=== PATIENT | female | born 1940 | race Caucasian/White ===

== ENCOUNTER → 2017-03-01 | Outpatient (CLI) | payer MEDICARE, OTHER ==
[~2017-03-01] MED LIST: ASPI-1005 PO; BETA1TAB18 PO; CLIN300C9 PO; EZET10 PO; FENO135C4 PO; LATA2.5D2 OU; LEVO150T11 PO; LOSA1TAB54 PO; REGADENOSON 0.4 MG/5 ML PF SYG IVP SCH
== END | disposition home or self-care (01) ==
LOC: SHCH 07:53
PROVIDERS: ATTEND Internal Medicine Cardiovascular Disease
DX: I25.10 Atherosclerotic heart disease of native coronary artery without angina pectoris (principal)
CPT/HCPCS: 78452; 93017; 96374; A9500 ×2; J2785

== ENCOUNTER → 2020-01-03 | Outpatient (CLI) | payer OTHER ==
[~2020-01-03] MED LIST changes: -EZET10 PO; +EZET10TA13 PO; +LATA2.5D14 OU; -LATA2.5D2 OU; -REGADENOSON 0.4 MG/5 ML PF SYG IVP SCH
== END | disposition home or self-care (01) ==
LOC: RAH 10:57
PROVIDERS: ATTEND Family Medicine
DX: I25.10 Atherosclerotic heart disease of native coronary artery without angina pectoris (principal)
CPT/HCPCS: 93922

== ENCOUNTER 2020-06-09 10:57 | Emergency (ER) | payer MEDICARE, OTHER ==
[~2020-06-09 10:57] MED LIST changes: +CLIN-141 PO; -CLIN300C9 PO
[2020-06-09 11:33] LABS: BASOPHILS % (AUTO) 0.9 % (0.0-5.0); EOSINOPHILS % (AUTO) 0.9 % (0.0-8.0); LYMPHOCYTES % (AUTO) 9.2 % (21.0-51.0); MEAN CORPUSCULAR HGB CONC 33.3 g/dL (32.0-36.0); MONOCYTES % (AUTO) 3.6 % (3.0-13.0); PLATELET COUNT (AUTO) 201 K/uL (130-400); RED BLOOD CELL COUNT(AUTO) 4.83 MIL/uL (4.00-5.50); RED CELL DISTRIBUTION WIDTH 13.4 % (11.0-15.5); WHITE BLOOD COUNT (AUTO) 5.6 K/uL (4.8-10.8)
[2020-06-09 11:39] LABS: APPEARANCE,URINE Cloudy (CLEAR); BILIRUBIN,URINE Negative (NEGATIVE); COLOR,URINE Yellow (YELLOW); GLUCOSE, URINE (UA) Negative (NEGATIVE); KETONES,URINE Trace mg/dL (NEGATIVE); LEUKOCYTE ESTERASE ,URINE Small (NEGATIVE); NITRATE,URINE Positive (NEGATIVE); OCCULT BLOOD,URINE Negative (NEGATIVE); PROTEIN,URINE Trace mg/dL (NEGATIVE)
[2020-06-09 11:43] LABS: INR 1.07 (0.85-1.15); POTASSIUM 3.2 mmol/L (3.5-5.1); PROTHROMBIN TIME 11.6 SEC (9.6-11.6)
[2020-06-09 11:44] LABS: PARTIAL THROMBOPLASTIN TIME 22.8 SEC (26.3-35.5)
[2020-06-09 11:47] LABS: ALBUMIN 3.6 g/dL (3.5-5.0); BILIRUBIN,TOTAL 0.7 mg/dL (0.2-1.0)
[2020-06-09 12:09] LABS: BACTERIA,URINE Moderate /HPF (None Seen); MUCUS,URINE Rare LPF (None Seen); RBC,URINE None Seen /HPF (0-1)
[2020-06-09] MEDS ORDERED: ONDANSETRON 4MG INJ ONE (12:51)
[2020-06-09] MEDS ORDERED: KCL 20 MEQ ERTAB PO ONE (12:51)
[2020-06-09] MEDS ORDERED: 0.9%NACL 1000ML 1,000 ML IV ONE (12:51)
[2020-06-09] MEDS ORDERED: NITROFURANTOIN MONOHYD/M-CRYST 100 MG CAPSULE PO ONE (14:21)
== END 2020-06-09 15:17 | disposition home or self-care (01) ==
LOC: EDH 10:57
DX: N30.00 Acute cystitis without hematuria (principal); E87.6 Hypokalemia; R53.1 Weakness; Z20.822 Contact with and (suspected) exposure to COVID-19
CPT/HCPCS: 36415; 70450; 71045; 80053; 81001; 82550; 82948; 83605; 84484; 85025; 85610; 85730; 87040 ×2; 87077; 87088; 87186; 87426; 87804 ×2; 93005; 96361; 96374; 99285; J2405; J7030; U0003

== ENCOUNTER → 2021-01-29 | Outpatient (CLI) | payer MEDICARE | END | disposition home or self-care (01) | LOC: OIH 09:25 | PROVIDERS: ATTEND Family Medicine | DX: R06.02 Shortness of breath (principal); M47.815 Spondylosis without myelopathy or radiculopathy, thoracolumbar region | CPT/HCPCS: 71046 ==

== ENCOUNTER 2021-03-04 07:37 | Day surgery (SDC) | payer MEDICARE ==
[2021-02-27 16:25] LABS: BASOPHILS % (AUTO) 0.7 % (0.0-5.0); EOSINOPHILS % (AUTO) 2.1 % (0.0-8.0); HEMATOCRIT 41.6 % (36-48); LYMPHOCYTES % (AUTO) 40.3 % (21.0-51.0); MEAN CORPUSCULAR HEMOGLOBIN 27.9 pg (27.0-33.0); MEAN CORPUSCULAR HGB CONC 32.9 g/dL (32.0-36.0); MEAN CORPUSCULAR VOLUME 84.7 fL (79-99); MONOCYTES % (AUTO) 7.2 % (3.0-13.0); NEUTROPHILS % (AUTO) 49.5 % (40.0-77.0); PLATELET COUNT (AUTO) 370 K/uL (130-400); RED BLOOD CELL COUNT(AUTO) 4.91 MIL/uL (4.00-5.50); RED CELL DISTRIBUTION WIDTH 13.7 % (11.0-15.5); WHITE BLOOD COUNT (AUTO) 8.4 K/uL (4.8-10.8)
[2021-02-27 16:38] LABS: CREATININE 0.9 mg/dL (0.5-1.5); POTASSIUM 3.3 mmol/L (3.5-5.1)
[2021-02-27 16:40] LABS: INR 1.05 (0.85-1.15); PROTHROMBIN TIME 11.4 SEC (9.6-11.6)
[2021-02-27 16:42] LABS: PARTIAL THROMBOPLASTIN TIME 27.1 SEC (26.3-35.5)
[2021-03-03 17:09] VITALS: BP 151/60
[~2021-03-04] VITALS: Ht 167.6 cm; Wt 79.7 kg
[2021-03-04] VITALS (9 sets, daily range): BP systolic 110–132; BP diastolic 40–52
[~2021-03-04 07:37] MED LIST changes: +0.9% NACL 500ML IV.SOLN 500 ML IV SCH; +AMLO10TA4 PO; -BETA1TAB18 PO; +C,E,1CAP2 PO; -CLIN-141 PO; +CRAN500T3 PO; +D-MANNOSE PO; -EZET10TA13 PO; +FENO135C PO; -FENO135C4 PO; +LEVO137T24 PO; -LEVO150T11 PO; -LOSA1TAB54 PO; +LOSA1TAB7 PO; +METO25TA3 PO; +NITR100C4 PO; +OMEP20TA2 PO; +POTASSIUM PO; +VITAMIN D PO
[2021-03-04] MEDS ORDERED: 0.9%NACL 1000ML 1,000 ML IV ONE (08:13)
[2021-03-04] MEDS ORDERED: NITR0.4T50 SL (09:02)
[2021-03-04] MEDS ORDERED: IOHEXOL 350 MG/ML 100ML INFUS..BTL IV ONE (09:11)
[2021-03-04] MEDS ORDERED: IOHEXOL-350 50ML VIAL IV ONE (09:11)
[2021-03-04] MEDS ORDERED: LIDOCAINE HCL 400MG/20ML VIAL ONE (09:12)
[2021-03-04] MEDS ORDERED: MIDAZOLAM HCL 1 MG/ML 2ML VIAL ONE (09:33)
== END 2021-03-04 16:25 | disposition home or self-care (01) ==
LOC: DAH 07:37
PROVIDERS: ATTEND Internal Medicine Cardiovascular Disease
DX: I25.119 Atherosclerotic heart disease of native coronary artery with unspecified angina pectoris (principal); I47.1 Supraventricular tachycardia; I10 Essential (primary) hypertension; E03.9 Hypothyroidism, unspecified; K21.9 Gastro-esophageal reflux disease without esophagitis; E78.5 Hyperlipidemia, unspecified; Z79.01 Long term (current) use of anticoagulants; Z79.899 Other long term (current) drug therapy; Z87.891 Personal history of nicotine dependence; Z88.0 Allergy status to penicillin; Z88.8 Allergy status to other drugs, medicaments and biological substances; Z90.49 Acquired absence of other specified parts of digestive tract; Z90.710 Acquired absence of both cervix and uterus; Z87.09 Personal history of other diseases of the respiratory system; Z98.890 Other specified postprocedural states; Z99.81 Dependence on supplemental oxygen
CPT/HCPCS: 36415; 80048; 85025; 85610; 85730; 93005; 93458; A4215; A4216; A4221; A4222; A4223 ×3; A4606; A4663; C1760; C1894; J1644; J2250; J3490; J7030; Q9965; Q9967 ×2; 99156; 99157

== ENCOUNTER → 2022-05-08 | Outpatient (CLI) | payer MEDICARE ==
[~2022-05-08] MED LIST changes: -0.9% NACL 500ML IV.SOLN 500 ML IV SCH; -CRAN500T3 PO; +CRAN500T4 PO; +LOSA-424 PO; -LOSA1TAB7 PO; +NITR0.4T50 SL
== END | disposition home or self-care (01) ==
LOC: RAH 11:39
PROVIDERS: ATTEND Family Medicine
DX: M17.12 Unilateral primary osteoarthritis, left knee (principal); M25.562 Pain in left knee
CPT/HCPCS: 73560

== ENCOUNTER → 2022-10-23 | Outpatient (CLI) | payer MEDICARE ==
[2022-10-23 12:40] LABS: CREATININE 1.4 mg/dL (0.5-1.5); POTASSIUM 4.1 mmol/L (3.5-5.1)
== END | disposition home or self-care (01) ==
LOC: LAB 08:21
PROVIDERS: ATTEND Internal Medicine Cardiovascular Disease
DX: I10 Essential (primary) hypertension (principal); I25.10 Atherosclerotic heart disease of native coronary artery without angina pectoris
CPT/HCPCS: 36415; 80048

== ENCOUNTER → 2023-08-03 | Outpatient (CLI) | payer MEDICARE ==
[~2023-08-03] MED LIST changes: +FURO20TA6 PO; +METR-172 PO; +SPIR25TA6 PO
== END | disposition home or self-care (01) ==
LOC: RAH 11:15
PROVIDERS: ATTEND Family Medicine
DX: N32.89 Other specified disorders of bladder (principal); N28.9 Disorder of kidney and ureter, unspecified
CPT/HCPCS: 76770